=== PATIENT | female | born 1960 | race Hispanic/Latino ===

== ENCOUNTER 2021-12-03 06:55 | Day surgery (SDC) | payer BC ==
[2021-12-03 07:43] LABS: Basophils % (Auto) 0.3 % (0.0-1.8); Eosinophils % (Auto) 0.5 % (0.0-4.3); Hematocrit 42.7 % (30.3-42.9); Hemoglobin 14.2 gm/dl (10.1-14.3); Lymphocytes # (Auto) 1.5 K/mm3 (1.2-5.4); Lymphocytes % (Auto) 40.6 % (13.4-35.0); Mean Corpuscular HGB Conc 33 % (30-34); Mean Corpuscular Volume 92 fl (79-97); Monocytes # (Auto) 0.4 K/mm3 (0.0-0.8); Monocytes % (Auto) 11.2 % (0.0-7.3); Platelet Count 170 K/mm3 (140-440); Red Blood Count 4.64 M/mm3 (3.65-5.03); Red Cell Distribution Width 14.2 % (13.2-15.2)
[2021-12-03] MEDS ORDERED: ASPIRIN EC 325 MG TAB PO ONE (07:53)
[2021-12-03 07:54] LABS: BUN/Creatinine Ratio 25; Blood Urea Nitrogen 20 mg/dL (7-17); Calcium 9.2 mg/dL (8.4-10.2); Hemolysis Index 20; INR 0.91 (0.87-1.13)
[2021-12-03 07:55] LABS: Partial Thromboplastin Time 32.2 Sec. (24.2-36.6)
[2021-12-03] MEDS: SODIUM CHLORIDE 0.9% 500 ML 500 ML IV SCH ×2 (08:08→09:00)
[2021-12-03] MEDS ORDERED: fentaNYL 100 MCG/2 ML INJ ONE (08:41)
[2021-12-03] MEDS ORDERED: NITROGLYCERIN SYRINGE 3 ML ONE (08:41)
[2021-12-03] MEDS ORDERED: HEPARIN/NS 5000 UNIT/500ML 1,000 ML IR ONE (08:41)
[2021-12-03] MEDS ORDERED: VERAPAMIL 5 MG/2 ML INJ ONE (08:41)
[2021-12-03] MEDS: MIDAZOLAM 2 MG/2 ML INJ ONE ×2 (09:00→09:11)
[2021-12-03] MEDS: HEPARIN 10,000 UNITS/10 ML VIAL ONE ×2 (09:02→09:09)
[2021-12-03] MEDS: LIDOCAINE (1%) 10 MG/1 ML VIAL 20 ML MDV ONE ×2 (09:02→09:07)
--- NOTE | 2021-12-03 11:04 | Cardiac Catherization Report ---
DATE OF PROCEDURE: 12/03/2021 CARDIAC CATHETERIZATION REFERRING PHYSICIAN: Dr. Florence Wayne. INDICATIONS FOR PROCEDURE: The patient is a pleasant 61-year-old female with a history of abnormal stress test, chest pain, referred for left heart catheterization. Risks, benefits, potential alternatives explained at length prior to obtaining informed consent. PROCEDURE IN DETAIL: The patient was brought to component lab tech in a postabsorptive state, prepped and draped in sterile fashion. Jian's test in right hand is normal. 2 mL of 2% lidocaine used to anesthetize the right wrist. A standard 6-Maori hydrophilic sheath used to cannulate the right radial artery via modified Seldinger technique. All exchanges performed to exchange a J-tip guidewire. JL3.5 catheter was used to engage the left main. No dampening or ventricularization. Cineangiography performed in all projections. JR4 catheter used to cross the aortic valve under fluoroscopic guidance. Left ventriculography performed in 30-degree HOWARD and 30-degree SPANISH projections via hand injections, catheter flushed. Manual pullback performed with continuous pressure monitoring. Catheter used to engage the right coronary. No dampening or ventricularization. Cineangiography performed in all projections. Catheter was removed from the body of wire, sheath removed. Manual pressure used to achieve hemostasis. I directly supervised the administration of fentanyl and Versed from 9:07 a.m. to 9:25 a.m. No immediate complications. The patient tolerated the procedure well. DATA: The patient remained in normal sinus rhythm throughout the procedure. Normal left ventricular systolic performance, estimated ejection fraction 55-60%. No evidence of aortic stenosis. Aortic pressure is 120/70, LV pressure is 120, LVEDP of 15 mmHg. Left heart reveals normal systolic performance. CORONARY ANATOMY: This is a right dominant system. Right coronary is a moderate sized vessel, courses AV groove, distally bifurcates into posterior descending and posterolateral branches. No discrete stenoses noted. Left main without significant disease, bifurcates into left anterior descending, left circumflex. LAD is moderate-sized vessel, courses anterior interventricular groove, wraps around the apex. There is a branch off of the left main, which has a superior course, which appears to dump into probably the pulmonary artery and serve as a fistula. No significant disease in the LAD or left circumflex. Left circumflex: Moderate sized vessel, no significant disease. 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 CONCLUSIONS: 1. No angiographic evidence of epicardial coronary artery disease in this right dominant system. 2. 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 May be causing some mild steal phenomenon. 3. Normal left ventricular systolic performance, estimated ejection fraction 55-60%. 4. No evidence of aortic stenosis. 5. Normal LVEDP. At this point, if she continues to have chest pain, we will consider Ranexa therapy, could consider cardiac CT to better understand the course of this vessel; however, it is quite small and would only recommend conservative therapy unless symptoms become recalcitrant. Results of procedure were explained to the patient and . All questions addressed. Standard radial care. TID: [id number] RECEIPT: [id number] JIMBO/FROILAN
[2021-12-03] MEDS ORDERED: HYDROcodone/ACETAMINOPHEN 5-325 MG TAB PO PRN (11:24)
[2021-12-03] MEDS ORDERED: traMADol 50 MG TAB PO PRN (11:24)
--- NOTE | 2021-12-03 12:36 | Short Stay Summary ---
Short Stay Documentation Date of service: 12/03/21 - History H&P: obtained from office - Allergies and Medications Current Medications: Allergies No Known Allergies Allergy (Unverified 12/03/21 07:13) Home Medications Medication Instructions Recorded Confirmed Last Taken Type Aspirin [Aquadale Aspirin EC] 81 mg PO DAILY 12/03/21 12/03/21 12/02/21 History atenoloL [Tenormin] 25 mg PO DAILY 12/03/21 12/03/21 12/02/21 History Active Medications Hydrocodone Bitart/Acetaminophen (Hydrocodone/Acetaminophen 5-325 Mg Tab) 1 each PO Q4H PRN PRN Reason: Pain, Moderate (4-6) Sodium Chloride (Nacl 0.9% 500 Ml) 500 mls @ 50 mls/hr IV DIRECT AWA Stop: 12/03/21 17:59 Last Admin: 12/03/21 09:00 Dose: 50 mls/hr Tramadol HCl (Tramadol 50 Mg Tab) 50 mg PO Q4H PRN PRN Reason: Pain, Mild (1-3) - Physical exam Integumentary: other (Dressing clean dry and intact with no signs of bleeding hematoma) - Brief post op/procedure progress note Date of procedure: 12/03/21 Pre-op diagnosis: Abnormal stress test/chest pain Post-op diagnosis: other (Normal coronaries) Anesthesia: local Estimated blood loss: minimal - Hospital course Hospital course: Patient presents today for cardiac cath. See report for details. Patient tolerated procedure well with no complications. 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 Wayne on on 12/18/2021 at 11:30 AM at our [place] location. Phone #[phone] Follow up with: JEFERSON VEGA [Other] - 7 Days Forms: CardCath PCI D/C Instructions
[2021-12-03 12:37] VITALS: BP 100/64
--- NOTE | 2021-12-03 20:36 | Electrocardiograph Report ---
[facility] Test Date: 2021-12-03 Test Time: 07:53:22 Pat Name: SYDNEY ALLISON Department: Room: Gender: F Community Relations Rep: BLESSING : 1960 Requested By: CIELO SAEED Order Number: [id number] Reading MD: Gaston Ledezma Measurements Intervals Allons Rate: 74 P: 76 DC: 154 QRS: 49 QRSD: 74 T: 29 QT: 395 QTc: 438 Interpretive Statements Sinus rhythm No previous ECG available for comparison Electronically Signed On 12-03-2021 20:35:38 EDT by Gaston Ledezma
== END 2021-12-03 13:15 | disposition home or self-care (01) ==
LOC: CATHLABREC 06:55
PROVIDERS: ATTEND Internal Medicine
DX: R94.39 Abnormal result of other cardiovascular function study (principal); R07.89 Other chest pain; I25.41 Coronary artery aneurysm; H40.9 Unspecified glaucoma; Z90.49 Acquired absence of other specified parts of digestive tract; Z79.82 Long term (current) use of aspirin; Z98.890 Other specified postprocedural states
CPT/HCPCS: 36415; 80048; 85025; 85610; 85730; 93005; 93458; 99156; C1894; J1644; J1815; J2250; J3010; J7040; Q9967